=== PATIENT | female | born 1995 | race Caucasian/White ===

== ENCOUNTER 2018-10-08 16:49 | Emergency (ER) | END 2018-10-09 03:16 ==

== ENCOUNTER 2019-06-17 22:06 | Emergency (ER) | payer OTHER ==
[~2019-06-17] VITALS: Ht 175.3 cm; Wt 99.0 kg
[~2019-06-17 22:06] MED LIST: ALBU8.5H8 INH; AZIT250T PO; BECL8.7A INH; PRED50TA PO
[2019-06-17 22:25] VITALS: Ht 175.3 cm; Wt 99.0 kg
[2019-06-17] MEDS ORDERED: LORAZEPAM 1 MG TAB PO ONE (22:30)
--- NOTE | 2019-06-17 23:05 | ERD ---
ER Documentation Chief Complaint Chief Complaint bib ra from home for suicidal attempt intentional, took unknown amt ativan HPI 23-year-old woman brought in by EMS from home for suicidal attempt, patient has a history of depression and states about 20 minutes prior to arrival she used about 25 tablets of 0.5 mg lorazepam to kill herself. She denies dizziness or loss of consciousness, no chest pain or shortness of breath, no vomiting or diarrhea. Patient was transported here without complications ROS All systems reviewed and are negative except as per history of present illness. Medications Home Meds Active Scripts Albuterol Sulfate* (Proair HFA*) 8.5 Gm Hfa.aer.ad, 2 PUFF INH Q6H PRN for WHEEZING AND SOB, #1 INH 2 Refills Prov:KIM TRAN MD 11/21/14 Prednisone* (Prednisone*) 50 Mg Tablet, 50 MG PO DAILY, #2 TAB Prov:KIM TRAN MD 11/21/14 Beclomethasone Dip* (Qvar 40*) 7.3 Gm Inha, 2 PUFF INH BID for 30 Days, INH 1 Refill Prov:KIM TRAN MD 11/21/14 Azithromycin* (Zithromax*) 250 Mg Tab, 250 MG PO DAILY@22 for 2 Days Prov:KIM TRAN MD 11/21/14 Allergies Allergies: Coded Allergies: No Known Allergies (Unverified Allergy, Unknown, 11/18/14) PMhx/Soc Depression History of Surgery: No Anesthesia Reaction: No Hx Neurological Disorder: No Hx Respiratory Disorders: Yes (ASTHMA) Hx Cardiac Disorders: No Hx Psychiatric Problems: Yes Hx Miscellaneous Medical Probl: No Hx Alcohol Use: No Hx Substance Use: No Hx Tobacco Use: No Smoking Status: Never smoker FmHx Family History: No diabetes Physical Exam Vitals Vital Signs Date Temp Pulse Resp B/P (MAP) Pulse Ox O2 O2 Flow FiO2 Time Delivery Rate 06/17/19 98.8 90 19 125/94 100 22:25 (104) 06/17/19 98.8 85 19 125/94 100 Room Air 22:25 (104) Physical Exam GENERAL: Well-developed, well-nourished, well-hydrated, tearful depressed, afebrile NEURO: Alert and oriented 3, cranial nerves II through XII intact bilaterally, pupils equal round reactive to light, no focal deficits or facial asymmetry, sensation intact distally Strength 5/5 in upper and lower extremities bilaterally CARDIAC: Regular rate and rhythm, no murmurs rubs or gallops LUNGS: Clear bilaterally no wheezing crackles or stridor EXTREMITIES: No clubbing cyanosis or edema, calves are bilaterally symmetrical, no Homans sign, no popliteal cord sign. Distal pulses equal and bilateral PSYCH: Depressed affect Result Diagram: 06/17/19222806/17/192228 Results 24 hrs Laboratory Tests Test 06/17/19 22:22 06/17/19 22:29 Urine Color YELLOW Urine Clarity CLEAR Urine pH 7.0 Urine Specific [place] 1.019 Urine Ketones NEGATIVE mg/dL Urine Nitrite NEGATIVE mg/dL Urine Bilirubin NEGATIVE mg/dL Urine Urobilinogen NEGATIVE mg/dL Urine Leukocyte Esterase NEGATIVE Tim[place]/ul Urine Hemoglobin NEGATIVE mg/dL Urine Glucose NEGATIVE mg/dL Urine Total Protein NEGATIVE mg/dl Urine Opiates Screen Negative Urine Barbiturates Negative Urine Amphetamines Screen Negative Urine Benzodiazepines Screen Negative Urine Cocaine Screen Negative Urine Cannabinoids Positive White Blood Count 7.3 10^3/ul Red Blood Count 4.88 10^6/ul Hemoglobin 12.0 g/dl Hematocrit 37.7 % Mean Corpuscular Volume 77.3 fl Mean Corpuscular Hemoglobin 24.6 pg Mean Corpuscular Hemoglobin Concent 31.8 g/dl Red Cell Distribution Width 16.8 % Platelet Count 318 10^3/UL Mean Platelet Volume 8.8 fl Immature Granulocytes % 0.300 % Neutrophils % 56.8 % Lymphocytes % 27.4 % Monocytes % 10.4 % Eosinophils % 4.8 % Basophils % 0.3 % Nucleated Red Blood Cells % 0.0 /100WBC Immature Granulocytes # 0.020 10^3/ul Neutrophils # 4.2 10^3/ul Lymphocytes # 2.0 10^3/ul Monocytes # 0.8 10^3/ul Eosinophils # 0.4 10^3/ul Basophils # 0.0 10^3/ul Nucleated Red Blood Cells # 0.0 10^3/ul Sodium Level 138 mmol/L Potassium Level 3.8 mmol/L Chloride Level 104 mmol/L Carbon Dioxide Level 26 mmol/L Anion Gap 8 Blood Urea Nitrogen 12 mg/dl Creatinine 0.82 mg/dl Est Glomerular Filtrat Rate mL/min > 60 mL/min Glucose Level 94 mg/dl Calcium Level 8.6 mg/dl Total Bilirubin 0.4 mg/dl Direct Bilirubin 0.00 mg/dl Indirect Bilirubin 0.4 mg/dl Aspartate Amino Transf (AST/SGOT) 16 IU/L Alanine Aminotransferase (ALT/SGPT) 15 IU/L Alkaline Phosphatase 58 IU/L Total Protein 6.3 g/dl Albumin 3.8 g/dl Globulin 2.50 g/dl Albumin/Globulin Ratio 1.52 Salicylates Level < 1.0 mg/dl Acetaminophen Level < 10.0 ug/ml Ethyl Alcohol Level < 10.0 mg/dl Current Medications Medications Dose Sig/Ye Start Time Status Last (Trade) Ordered Route PRN Stop Time Admin Dose Reason Admin Lorazepam 1 mg ONCE ONCE 06/17/19 DC (Ativan) PO 22:30 06/17/19 22:31 Procedures/MDM Security one-to-one watch was established and tele-psychiatrist was contacted. test was negative, CBC and electrolytes are unremarkable, liver function tests normal, drug screen negative, ethanol level negative. Tele-psychiatrist on evaluated the patient at the bedside and recommended involuntary 5150 psychiatric hold and haloperidol 5 mg IM as needed Observation Note: Time: 5 hours Family Hx: No Hypertension Evaluation: Multiple exams showed improving symptoms and no evidence of worsening mental status or abnormal vital signs. Patient's behavioral symptoms have stabilized while in the department. Patient is medically cleared and appropriate for psychiatric evaluation and work up. No e/o neurologic, toxic, infectious, or metabolic cause. Departure Diagnosis: Primary Impression: Intentional drug overdose Encounter type: initial encounter Qualified Codes: T50.902A - Poisoning by unspecified drugs, medicaments and biological substances, intentional self- harm, initial encounter Additional Impressions: Depression Depression Type: major depressive disorder Major depression recurrence: single episode Active/Remission status: currently active Major depression episode severity: moderate Qualified Codes: F32.1 - Major depressive disorder, single episode, moderate Suicidal ideation Condition: JUNE Clark MD Jun 17, 2019 23:05
--- NOTE | 2019-06-17 23:45 | PSY ---
Date/Time of Note Date/Time of Note DATE: 06/17/19 TIME: 23:37 Psychiatric Subjective Eval Consent Pt consented to telemedicine: Yes Subjective Evaluation Patient location: emergency Chief Complaint: bib ra from home for suicidal attempt intentional, took unknown amt ativan Medical history Problems Medical Problems: (1) Bronchitis with asthma, acute Status: Acute (2) Depression Status: Acute (3) Intentional drug overdose Status: Acute (4) Patient left after triage Status: Acute (5) Status asthmaticus Status: Acute (6) Suicidal ideation Status: Acute Allergies: Coded Allergies: No Known Allergies (Unverified Allergy, Unknown, 11/18/14) Psychiatric Objective Eval Mental Status Examination: Laboratory Results Laboratory Tests Test 06/17/19 22:22 06/17/19 22:29 Urine Color YELLOW Urine Clarity CLEAR Urine pH 7.0 Urine Specific [place] 1.019 Urine Ketones NEGATIVE mg/dL Urine Nitrite NEGATIVE mg/dL Urine Bilirubin NEGATIVE mg/dL Urine Urobilinogen NEGATIVE mg/dL Urine Leukocyte Esterase NEGATIVE [place]/ul Urine Hemoglobin NEGATIVE mg/dL Urine Glucose NEGATIVE mg/dL Urine Total Protein NEGATIVE mg/dl Urine Opiates Screen Negative Urine Barbiturates Negative Urine Amphetamines Screen Negative Urine Benzodiazepines Screen Negative Urine Cocaine Screen Negative Urine Cannabinoids Positive White Blood Count 7.3 10^3/ul Red Blood Count 4.88 10^6/ul Hemoglobin 12.0 g/dl Hematocrit 37.7 % Mean Corpuscular Volume 77.3 fl Mean Corpuscular Hemoglobin 24.6 pg Mean Corpuscular Hemoglobin Concent 31.8 g/dl Red Cell Distribution Width 16.8 % Platelet Count 318 10^3/UL Mean Platelet Volume 8.8 fl Immature Granulocytes % 0.300 % Neutrophils % 56.8 % Lymphocytes % 27.4 % Monocytes % 10.4 % Eosinophils % 4.8 % Basophils % 0.3 % Nucleated Red Blood Cells % 0.0 /100WBC Immature Granulocytes # 0.020 10^3/ul Neutrophils # 4.2 10^3/ul Lymphocytes # 2.0 10^3/ul Monocytes # 0.8 10^3/ul Eosinophils # 0.4 10^3/ul Basophils # 0.0 10^3/ul Nucleated Red Blood Cells # 0.0 10^3/ul Sodium Level 138 mmol/L Potassium Level 3.8 mmol/L Chloride Level 104 mmol/L Carbon Dioxide Level 26 mmol/L Anion Gap 8 Blood Urea Nitrogen 12 mg/dl Creatinine 0.82 mg/dl Est Glomerular Filtrat Rate mL/min > 60 mL/min Glucose Level 94 mg/dl Calcium Level 8.6 mg/dl Total Bilirubin 0.4 mg/dl Direct Bilirubin 0.00 mg/dl Indirect Bilirubin 0.4 mg/dl Aspartate Amino Transf (AST/SGOT) 16 IU/L Alanine Aminotransferase (ALT/SGPT) 15 IU/L Alkaline Phosphatase 58 IU/L Total Protein 6.3 g/dl Albumin 3.8 g/dl Globulin 2.50 g/dl Albumin/Globulin Ratio 1.52 Salicylates Level < 1.0 mg/dl Acetaminophen Level < 10.0 ug/ml Ethyl Alcohol Level < 10.0 mg/dl Assessment and Plan Recommendation/Plan Discharge Disposition: Psychiatric inpatient Legal Status: Place involuntary hold Assessment Additional comments: +IDENTIFYING INFORMATION: 23 year old Female patient who is currently located at the hospital and for whom psychiatric consultation was requested. SOURCES OF INFORMATION: The patient who appears to be somewhat reliable and the medical records; the nursing staff. CHIEF COMPLAINT: "I took too much medications". HISTORY OF PRESENT ILLNESS: The patient was interviewed via telemedicine in the presence of and under the supervision of nursing staff of the hospital. The consent to conducting this interview via telemedicine was obtained by the nursing staff at the hospital. ELSIE Zamorano reports that the patient presented with an OD of 15-20 lorazepam tablets as a SA. Is not on a 5150 hold. The patient reports having taken an OD of lorazepam because she felt anxiety and very trapped. Admits to having thoughts of suicide. The patient denies having depressed mood, anhedonia, insomnia, low appetite, AH, VH, delusions. The patient denies using alcohol heavily or regularly. The patient reports using MJ at times. The patient denies using any other substances. In terms of past psychiatric history, the patient reports having a history of past psychiatric hospitalizations. The patient reports having a history of past suicide attempts. PAST MEDICAL HISTORY: asthma. CURRENT MEDICATIONS: albuterol, qvair. ALLERGIES TO MEDICATIONS: NKDA. LABORATORY TESTS: CBC with MCV 77.3, MCH 24.6, CMP wnl, UDS + MJ, alcohol level not detected. SOCIAL HISTORY: lives with family, single, no kids, employed at [employer]. REVIEW OF SYSTEMS: Constitutional (e.g., fever, weight loss): negative; Eyes, Ears, Nose, Mouth, Throat: negative; Cardiovascular: negative; Respiratory: negative; Gastrointestinal: negative; Genitourinary: negative; Musculoskeletal: negative; Integumentary (skin and/or breast): negative; Neurological: negative; Psychiatric: as per HPI; Endocrine: negative; Hematologic/Lymphatic: negative; Allergic/Immunologic: negative. MENTAL STATUS EXAMINATION: General Appearance and Behavior: Calm, cooperative with the interview, pleasant with the current interviewer, makes fair eye contact, fairly groomed, no abnormal movements noted, Speech: Regular rate, regular rhythm, normal latency, normal volume, somewhat decreased amount, Flow of thought: sequential, logical, goal-directed, Content of thought: no auditory hallucinations, no visual hallucinations, no delusions, positive for suicidal ideation; no homicidal ideation, Mood: "depressed", Affect: dysthymic, dysphoric, not reactive, Attention: normal based on the interview, Insight: fair, Judgment: poor, Memory: normal based on the interview, Sensorium: alert and oriented to person, place and date. ASSESSMENT: The patient's presentation and history are consistent with the diagnosis of unspecified mood disorder. The patient presents with depressive symptoms in the context of medication noncompliance, psychosocial stressors. No evidence of psychosis, sonali, hypomania on exam. PLAN: - Medication management: Would watch for benzodiazepine withdrawal and treat accordingly. Would start haloperidol 5 mg IM PRN severe agitation q4 hours. Would start diphenhydramine 50 mg IM PRN severe agitation q4 hours. Will defer to the inpatient psychiatry team for other medication changes. - Labs: No other laboratory tests are needed at this time. - Psychotherapy: Provided supportive psychotherapy and psychoeducation. - Disposition: Would recommend involuntary admission to the inpatient psychiatric unit given t he severity of the patient's psychiatric condition and the fact that the patient is an imminent danger to self and/or others so long as the patient has been cleared medically for admission to psychiatry. Inpatient psychiatric admission is at this time the least restrictive environment where the patient can receive the psychiatric care that is needed. Would place on suicide precautions. The patient fulfills criteria for being placed on an involuntary hold for being a danger to self due to a psychiatric disorder. Discussed about the above plan with Dr. Holguin. ANITA WINN MD Jun 17, 2019 23:45
[2019-06-18 09:33] VITALS: BP 127/91; PULSE 93; RESP 20
== END 2019-06-18 09:37 ==
LOC: E/R 22:06
DX: T42.4X2A Poisoning by benzodiazepines, intentional self-harm, initial encounter (principal); F32.1 Major depressive disorder, single episode, moderate; J45.909 Unspecified asthma, uncomplicated
CPT/HCPCS: 36415; 80053; 80307; 81003; 84703; 85025; Z7502